=== PATIENT | female | born 1960 | race Caucasian/White ===

== ENCOUNTER → 2017-12-04 16:21 | Outpatient (CLI) | payer OTHER, SELFPAY ==
[2017-12-04 17:11] LABS: Absolute Lymphocyte Count 0.99 X10^3/ul (0.83-4.51); Absolute Neutrophil Count 8.4 X10^3/uL (2.0-7.7); Basophil# 0.01 X10^3/uL; Basophil% 0.1 % (0-1); Eosinophil# 0.02 X10^3/uL; Eosinophils% 0.2 % (0-5); Hematocrit 26.4 % (37-47); Lymphocyte # 0.99 X10^3/ul (4.0); Mean Corp Hgb Conc 30.3 g/gl (32-36); Mean Corpuscular Hgb 26.8 pg (27.0-32.0); Mean Corpuscular Volume 88.3 fL (81-99); Mean Platelet Vol. 8.5 fl (6.2-12.0); Monocyte# 1.44 X10^3/uL; Monocyte% 13.1 % (0-10); Neutrophil # 8.42 X10^3/uL (2.7-7.7); Neutrophil % 76.9 % (47-70); Platelet Count 394 K/mm3 (150-450); RBC Distribution Width CV 18.6 % (11.6-14.6); Red Blood Count 2.99 M/mm3 (4.2-5.4)
[2017-12-04 17:18] LABS: POSITIVE COUNT NO; POSITIVE DIFFERENTIAL NO; POSITIVE MORPHOLOGY NO
== END ==
PROVIDERS: Family Provider Internal Medicine; PCP Internal Medicine
DX: C18.6 Malignant neoplasm of descending colon (principal)
CPT/HCPCS: 36415; 85025

== ENCOUNTER 2017-12-27 18:03 | Emergency (ER) | payer OTHER, SELFPAY ==
[2017-12-27 18:03] VITALS: BP 124/67; PULSE 122; RESP 20; TEMP 36.9; O2SAT 97; BMI 24.4
--- NOTE | 2017-12-27 18:42 | EKG12_ITS ---
Test Reason : WEAKNESS Blood Pressure : / mmHG Vent. Rate : 115 BPM Atrial Rate : 115 BPM P-R Int : 126 ms QRS Dur : 078 ms QT Int : 304 ms P-R-T Axes : 048 -10 020 degrees QTc Int : 420 ms Sinus tachycardia Otherwise normal ECG Confirmed by JINA BRO MD ([id number]), editorial specialist VICKY VALE ([id number]) on 12/30/2017 2:36:33 PM Referred By: ESTRADA Confirmed By:JINA BRO MD
--- NOTE | 2017-12-27 18:42 | CT_ITS ---
STUDY: CT ABDOMEN AND PELVIS WITHOUT CONTRAST REASON FOR EXAM: Female, 57 years old. WEAKNESS, finished chemo on Thursday, colon ca RADIATION DOSAGE (If Supplied By Facility): CTDIvol = ( 6.42 ) mGy, DLP = ( 336.58 ) mGycm TECHNIQUE: Transaxial images were obtained from the dome of the diaphragm to the symphysis pubis without oral contrast, and without intravenous contrast. Sagittal and coronal images were reconstructed. Individualized dose optimization techniques were used for this CT. COMPARISON: June 05, 2017 FINDINGS: There are new small left larger than right pleural effusions. There is associated compressive atelectasis. The visualized portions of the heart are within normal limits. Normal liver. There appears to be a new gallstone.. Normal spleen. Normal pancreas. Normal bilateral adrenal glands. There is new severe left and moderate right hydroureteronephrosis due to distal ureteral obstruction by the pelvic mass. Normal visualized stomach. Normal small intestine. The previously described mass in the pelvis is much larger. It is indistinguishable from unopacified bowel loops and ascites. It encompasses most of the pelvis and extends up into the abdomen. It appears to measure 22 cm medial lateral. There is new free intraperitoneal air, at least mild, which is difficult to distinguish from intraluminal bowel gas in some areas. There is new moderate peritoneal ascites. Normal abdominal aorta. Normal inferior vena cava. Normal urinary bladder. Again seen is a right lower quadrant ostomy. It is now distended with fluid. There are diffuse degenerative changes of the visualized lumbar spine. CT/Abdomen/Pelvis without Cont IMPRESSION: The previously described mass consistent with colon cancer is much larger. There is new free intraperitoneal air consistent with colonic perforation. There is new peritoneal ascites. There is new bilateral hydronephrosis due to ureteral obstruction by the mass. N.B. : The above information has been verbally conveyed by Crystal Doshi MD to Dr. Michelle Flores, Referring Physician, on 12/27/2017 19:52:51 (ET). Electronically Signed: Crystal Doshi MD at 19:42 EDT , Service support , N.B. : The above information has been verbally conveyed by Crystal Doshi MD to Dr. Michelle Flores, Referring Physician, on 12/27/2017 19:52:51 (ET).
--- NOTE | 2017-12-27 18:45 | ED.VISSUMM ---
- ER Visit Summary Date of Service: 12/27/17 Chief Complaint: Generalized weakness History of Present Illness: The patient is a 57 F presenting with generalized weakness. Patient was discharged from the [facility] in [place] on Thursday. She states she again has the same symptoms that she was admitted for. She was there for 6 days. She has generalized weakness. She states she is barely able to walk without being extremely weak. She is on chemotherapy for metastatic colon cancer. Her last chemo was December 20. This was stopped due to her generalized weakness. She has appointment with the [facility] tomorrow. She denies fever. She has abdominal pain and nausea. Denies vomiting. She has an ileostomy. She states she has had not had increased output or blood in her ostomy. While she was admitted she had 4 units of blood. Physical Examination: Vitals are stable. Patient is afebrile. Alert no acute distress. HEENT exam is unremarkable. Neck is supple. Lungs are clear and equal bilaterally. Heart is regular rate and rhythm. Abdomen is soft diffuse tenderness with no rebound or guarding, ileostomy Extremities are unremarkable. Skin is warm and dry. No focal neurologic deficit. Remainder of exam is unremarkable. Emergency Department Course and Treatment: Patient is given IV fluids. CBC shows a white count of 19.6, hemoglobin 9.9. Chemistries show sodium 129, glucose 120. Troponin is negative. Lactic acid is 1.7. EKG is sinus tachycardia rate 115. Blood cultures were drawn. Chest x-ray shows atelectasis. CT abdomen shows the previously described mass consistent with colon cancer is much larger. There is new free intraperitoneal air consistent with colonic perforation. There is new peritoneal ascites. There is new bilateral hydronephrosis due to ureteral obstruction by the mass. She was given Zosyn IV. She was given additional fluids and fentanyl. Discussed with [facility] transfer line. Patient will be transferred to [facility]. Disposition: Transfer [facility] Impression: History of metastatic colon cancer, colonic perforation This note was generated with [employer] dictation software. It may contain incorrect words, spelling, and punctuation that were not noted in review of the chart prior to signing ED Disposition - Plan for ED Patient: Chief Complaint: Weakness Referrals: Siddharth Farrell MD [Primary Care Provider] -
--- NOTE | 2017-12-27 18:51 | RAD_ITS ---
STUDY: X-RAY CHEST REASON FOR EXAM: Female, 57 years old. D/C FROM [facility] ON ; RECEIVED MULTIPLE UNITS PRBC AND LAST ORAL CHEMO WAS 12/17/17 FOR COLON CA. PT HERE TODAY WITH GENERALIZED WEAKNESS WITH PAIN ABD, BACK AND SHOULDERS TECHNIQUE: Single AP portable view of the chest. COMPARISON: April 30, 2017 FINDINGS: The lungs are underexpanded with slight left basilar atelectasis.. There is no demonstrated pleural abnormality. Normal size heart. Normal mediastinum and rodrick. Normal visualized pulmonary arteries. There is atherosclerotic calcification of the aortic arch with tortuosity. Normal visualized thoracic spine. Normal visualized ribs, clavicles, and shoulders. There is no demonstrated abnormality of the visualized soft tissue structures of the upper abdomen. RAD/Chest 1 View (Portable) IMPRESSION: The lungs are underexpanded with slight left basilar atelectasis.. Electronically Signed: Crystal Doshi MD at 19:17 EDT , Service support ,
[2017-12-27 18:55] VITALS: BP 103/74; PULSE 122; RESP 16; O2SAT 97
[2017-12-27 19:11] LABS: Hematocrit 31.1 % (37-47); Hemoglobin 9.9 g/dl (12.0-15.0); Mean Corp Hgb Conc 31.8 g/gl (32-36); Mean Corpuscular Hgb 28.7 pg (27.0-32.0); Mean Corpuscular Volume 90.1 fL (81-99); RBC Distribution Width CV 17.5 % (11.6-14.6); RBC Distribution Width SD 54.5 fl (35.1-43.9); Red Blood Count 3.45 M/mm3 (4.2-5.4); White Blood Count 19.6 K/mm3 (4.4-11.0)
[2017-12-27 19:14] LABS: ALB/GLOB Ratio 0.4 RATIO (0.9-2.4); AST(SGOT) 13 U/L (15-37); Alanine Aminotransfer ALT/SGPT 10 U/L (13-56); Albumin, Serum 1.6 g/dL (3.2-5.0); Alkaline Phosphatase 116 U/L (45-117); Anion Gap 13 (5-15); BUN 12 mg/dL (7-18); BUN/Creat Ratio 16.9 RATIO (10-20); Calcium,Total 8.1 mg/dL (8.5-10.1); Chloride 94 mmol/L (98-107); Creatinine, Serum 0.71 mg/dL (0.55-1.02); EST Glomerular Filtration Rate 91 mL/min (>60); Est Glom Filt Rate - Afr Amer 110 mL/min (>60); Estimated Creatinine Clearance 74.06 ml/min; Globulin 4.1 g/dL (2.2-4.2); Glucose 120 mg/dL (74-106); Lipase 30 U/L (73-393); Potassium 4.2 mmol/L (3.5-5.1); Protein, Total 5.7 g/dL (6.4-8.2); Sodium Level 129 mmol/L (136-145)
[2017-12-27 19:25] LABS: Differential Indicated MANUAL DIFF; POSITIVE COUNT YES; POSITIVE DIFFERENTIAL NO; POSITIVE MORPHOLOGY YES; Platelet Count 1031 K/mm3 (150-450)
--- NOTE | 2017-12-27 19:26 | ED.RN ---
PLATELET COUNT [id number]. DR DORADO MADE AWARE
[2017-12-27 19:33] LABS: Lactic Acid 1.7 mmol/L (0.4-2.0)
[2017-12-27 19:41] LABS: Lymphocyte 4 % (19-41); Metamyelocyte 1 % (0-1); Monocyte 5 % (0-10); Myelocyte 1 (0-0); Neutrophil-Band 9 % (0-5); Neutrophil-Segmented 78 % (47-70); Plasma Cell 2 %; Total Cells Counted 100 (MANUAL DIFF)
[2017-12-27 19:43] LABS: Absolute Lymphocyte Count 0.78 X10^3/ul (0.83-4.51); Platelet Estimate MKD INC (ADEQ)
[2017-12-27 20:02] VITALS: BP 121/88; PULSE 125; RESP 20; O2SAT 95
[2017-12-27] MEDS: 0.9% Normal Saline 1,000 ML 999 ML IV (20:06)
[2017-12-27] MEDS: fentaNYL 100 MCG/2 ML Ampul 50 MCG IV ×2 (20:07→21:25)
--- NOTE | 2017-12-27 20:14 | NURSING ---
TRANSFERING TO [facility] IS TRANSPORTING AND WILL BE HERE WITHIN 45 MINUTES @2015
[2017-12-27 21:00] LABS: Mucous, Urine 0 SEEN /hpf (<or=2+); Red Blood Cells-Urine 0 SEEN /hpf (0-5)
[2017-12-27 21:10] LABS: Color, Urine Yellow (Yellow); Glucose, Dipstick Normal (Normal); Ketone-Dipstick 5 mg/dl (Negative); Leukocyte Esterase-Dipstick 25 /ul (Negative); Nitrite-Dipstick Negative (Negative); Occult Blood-Urine Negative /ul (Negative); Protein-Dipstick 30 mg/dl (Negative); Specific Gravity, Urine 1.025 (1.002-1.030); Urine Clarity Clear (Clear); Urine Urobilinogen 1 mg/dl (Normal)
[2017-12-27 21:14] LABS: Urine Bilirubin Dipstick 1 mg/dL (Negative)
[2017-12-27 21:19] LABS: Bacteria 1+ /hpf (None Seen); Squamous Epithelial Cells - UA 0-5 SEEN /hpf (5-10); White Blood Cells 0-5 SEEN /hpf (0-5)
[2017-12-28 09:42] LABS: Pathologist Review Reviewed
== END 2017-12-27 21:41 | disposition short-term general hospital (02) ==
LOC: ED 19:23
PROVIDERS: Emergency Provider Emergency Medicine; Family Provider Internal Medicine; PCP Internal Medicine
DX: C18.9 Malignant neoplasm of colon, unspecified (principal); K63.1 Perforation of intestine (nontraumatic); N13.1 Hydronephrosis with ureteral stricture, not elsewhere classified; J98.11 Atelectasis; Z93.2 Ileostomy status; Z85.43 Personal history of malignant neoplasm of ovary; Z79.82 Long term (current) use of aspirin; Z79.899 Other long term (current) drug therapy
CPT/HCPCS: 51702; 71045; 74176; 80053; 81001; 83605; 83690; 84484; 85025; 87040; 93005; 96361; 96365; 96375; 96376; 99285; J7030; J7040; A4216